=== PATIENT | female | born 1995 | race Caucasian/White ===

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

== ENCOUNTER 2017-03-07 08:11 | Day surgery (SDC) | payer OTHER ==
[~2017-03-07] VITALS: Ht 170.2 cm; Wt 98.4 kg
[2017-03-07] VITALS (10 sets, daily range): BP systolic 108–118; BP diastolic 52–70; PULSE 68–101; RESP 15–22; Ht 170.2 cm; Wt 98.4 kg
[~2017-03-07 08:11] MED LIST: BEN25 PO; CEFAZOLIN 1 GM INJ ONE; CEFAZOLIN 2 GM/50 ML (PMX) 50 ML IVPB SCH; CLOT30CR24 TOP; SOD CHLORIDE 0.9% 1,000 ML IV SCH
[2017-03-07] MEDS ORDERED: BUPIVACAINE 0.25% (MPF) 30 ML INJ ONE (10:18)
[2017-03-07] MEDS ORDERED: BUPIVACAINE 0.25%/EPI (SDV) 30 ML INJ ONE (10:18)
[2017-03-07] MEDS ORDERED: PROPOFOL 20 ML ONE ×2 (10:23→10:38)
[2017-03-07] MEDS ORDERED: MIDAZOLAM 1 MG/ML 2 ML INJ ONE (10:23)
[2017-03-07] MEDS ORDERED: LIDOCAINE 2% (SDV) 5 ML INJ ONE (10:23)
[2017-03-07] MEDS ORDERED: FENTAnyl 50 MCG/ML VIAL ONE (10:31)
[2017-03-07] MEDS ORDERED: ONDANSETRON 4 MG INJ ONE (10:31)
[2017-03-07] MEDS ORDERED: METOCLOPRAMIDE 10 MG INJ ONE (10:31)
[2017-03-07] MEDS ORDERED: DEXAMETHASONE 4 MG/ML 1 ML INJ ONE (10:31)
--- NOTE | 2017-03-07 10:46 | OPR ---
Date/Time of Note Date/Time of Note DATE: 03/07/17 TIME: 10:43 Operative Report Procedure Date: Mar 07, 2017 Preoperative Diagnosis sternal mass Postoperative Diagnosis same Operation Performed 1. excision of sternal mass 4 cm mass 5 cm incision 2. localized adjacent tissue transfer with the use of skin flaps 15 sq cm defect 3. therapeutic injection of subcutaneous marcaine Surgeon: Maxim CARSON Specimens sternal mass Indications This is a 21-year-old female with sternal mass. She required surgical excision or mass. Risks alternatives benefits and percent were discussed the patient. Patient's best understanding consents to the operation. Procedure Description Patient is taken to the OR and prepped and draped in usual sterile fashion. Surgical timeout is performed. IV antibiotics were given. Elliptical incision was made over the midsternal mass. Dissection cautery was carried onto the mass into the deeper tissues. The mass was circumferentially excised. Hemostasis established. Due to large tissue defect bilateral advancement flaps are created and closed in a multilayer fashion with interrupted 3-0 Vicryl and skin jacob. Subcutaneous therapeutic anesthesia is injected. Dry dressings were applied. Maxim CARSON Mar 07, 2017 10:46
[2017-03-07] MEDS ORDERED: OXYCODONE/ACETAMINOPHEN (5/325) TAB PO PRN ×2 (11:00)
[2017-03-07] MEDS ORDERED: PROCHLORPERAZINE 10 MG INJ IV PRN (11:00)
[2017-03-07] MEDS ORDERED: MEPERIDINE 25 MG INJ IV PRN (11:00)
[2017-03-07] MEDS ORDERED: FENTAnyl 50 MCG/ML VIAL IV PRN (11:00)
[2017-03-07] MEDS ORDERED: HYDROCODONE/APAP (5/325) TAB PO ONE (11:00)
[2017-03-07] MEDS ORDERED: DIPHENHYDRAMINE 50 MG INJ IV PRN (11:00)
[2017-03-07] MEDS ORDERED: ONDANSETRON 4 MG INJ IV PRN (11:00)
[2017-03-07] MEDS ORDERED: HYDROmorphONE (0.2 MG/ML) 10ML SYG IV PRN (11:00)
== END 2017-03-07 12:25 | disposition home or self-care (01) ==
LOC: SDS 08:11
PROVIDERS: ATTEND Surgery
DX: L72.0 Epidermal cyst (principal); E66.9 Obesity, unspecified; Z68.34 Body mass index [BMI] 34.0-34.9, adult
CPT/HCPCS: 14001; 88307; J1100; J2250; J2405; J2765; J3010; Z7512; Z7610; J0690

== ENCOUNTER 2017-09-15 13:12 | Emergency (ER) | END 2017-09-15 19:58 | disposition home or self-care (01) ==